=== PATIENT | male | born 1955 | race Caucasian/White ===

== ENCOUNTER 2021-01-30 18:17 | Emergency (ER) | payer MEDICARE ==
[~2021-01-30] VITALS: Ht 188 cm; Wt 108.9 kg
[~2021-01-30 18:17] MED LIST: ATIVAN0.5 MG PO; DIGOX125 MCG PO; K-TAB ER20 MEQ PO; KAPSPARGO SPRIN25 MG PO; LASIX40 MG PO; LIPITOR20 MG PO; METOPROLOL SUCC25 MG PO; METOPROLOL SUCC50 MG PO; NICOTINE PATCH1 EACH TD; PANTOPRAZOLE SO40 MG PO; XARELTO20 MG PO; ZESTRIL2.5 MG PO
[2021-01-30] MEDS ORDERED: LASIX40 MG PO (21:00)
[2021-01-30] MEDS ORDERED: PANTOPRAZOLE SO40 MG PO (21:00)
[2021-01-30] MEDS ORDERED: LIPITOR20 MG PO (21:00)
[2021-01-30] MEDS ORDERED: XARELTO20 MG PO (21:00)
[2021-01-30] MEDS ORDERED: METOPROLOL SUCC25 MG PO ×2 (21:00)
[2021-01-30] MEDS ORDERED: ZESTRIL2.5 MG PO (21:00)
[2021-01-30] MEDS ORDERED: DIGOX125 MCG PO (21:00)
[2021-01-30] MEDS ORDERED: K-TAB ER20 MEQ PO (21:00)
[2021-01-30] MEDS ORDERED: METOPROLOL SUCC50 MG PO ×2 (21:27→21:31)
--- NOTE | 2021-01-31 07:29 | EKG ---
[facility] [address] [facility] [place] [address] Signed Atrial fibrillation with rapid ventricular response with premature ventricular or aberrantly conducted complexes Left axis deviation Low voltage QRS Incomplete right bundle branch block Possible Anterolateral infarct , age undetermined Abnormal ECG When compared with ECG of 26-DEC-2020 05:52, Borderline criteria for Anterior infarct are now present Borderline criteria for Anterolateral infarct are now present Nonspecific T wave abnormality now evident in Anterior leads Confirmed by CARMENZA MCDANIELS MD ([id number] on 01/31/2021 7:29:07 AM Electronically Signed By: CARMENZA MCDANIELS MD 01/31/21 0729 PATIENT NAME: RASHAUN COSTA Electrocardiogram DATE OF : 57 PHYSICIAN: CARMENZA MCDANIELS MD REPORT #: [id number] REPORT IS CONFIDENTIAL AND NOT TO BE RELEASED WITHOUT AUTHORIZATION
== END 2021-01-30 21:38 | disposition home or self-care (01) ==
LOC: ED 18:17
DX: I48.91 Unspecified atrial fibrillation (principal); I50.9 Heart failure, unspecified; Z91.19 Patient's noncompliance with other medical treatment and regimen; Z87.891 Personal history of nicotine dependence; Z88.0 Allergy status to penicillin
CPT/HCPCS: 71045; 80053; 83735; 83880; 84484; 85025; 93005; 93010; 96374; 99285-25